=== PATIENT | female | born 1985 | race African-American/Black ===

== ENCOUNTER 2019-07-31 15:59 | Emergency (ER) | payer MEDICAID ==
[~2019-07-31] VITALS: Ht 162.6 cm; Wt 83.0 kg
[2019-07-31 16:24] VITALS: BP 121/83
== END 2019-07-31 17:41 | disposition home or self-care (01) ==
LOC: ER 15:59
DX: Z53.21 Procedure and treatment not carried out due to patient leaving prior to being seen by health care provider (principal)